=== PATIENT | male | born 1960 ===

== ENCOUNTER 2024-11-18 05:55 | Day surgery (SDC) | payer OTHER ==
[2024-11-18] MEDS ORDERED: MIDAZOLAM HCL 2 MG/2 ML VIAL IV ONE (08:30)
[2024-11-18] MEDS ORDERED: DIPHENHYDRAMINE HCL 50 MG/ML VIAL 1ML IV ONE (08:30)
[2024-11-18] MEDS ORDERED: fentaNYL CITRATE 50 MCG/ML AMPUL IV PUSH ONE (08:30)
== END 2024-11-18 09:55 | disposition home or self-care (01) ==
LOC: AMB-ENDOS 05:55
PROVIDERS: ATTEND Colon & Rectal Surgery
DX: K62.1 Rectal polyp (principal); K63.5 Polyp of colon; K57.30 Diverticulosis of large intestine without perforation or abscess without bleeding